=== PATIENT | male | born 1970 | race Caucasian/White ===

== ENCOUNTER 2016-11-19 21:42 | Emergency (ER) | payer OTHER ==
[2016-11-19] MEDS ORDERED: TDAP ADULT 0.5 ML INJ (BOOSTRIX) IM ONE (23:51)
[2016-11-19] MEDS ORDERED: CEPHALEXIN 500MG PREPACK#4 BTL TAKEHOME ONE (23:52)
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
[2016-11-20 00:31] VITALS: BP 110/67; PULSE 62; RESP 12; TEMP 98.6; O2SAT 95
== END 2016-11-20 00:21 | disposition home or self-care (01) ==
DX: S63.282A Dislocation of proximal interphalangeal joint of right middle finger, initial encounter (principal); S61.212A Laceration without foreign body of right middle finger without damage to nail, initial encounter; Z23 Encounter for immunization; V18.9XXA Unspecified pedal cyclist injured in noncollision transport accident in traffic accident, initial encounter
CPT/HCPCS: L3925